=== PATIENT | female | born 1955 | race Caucasian/White ===

== ENCOUNTER 2020-05-02 06:14 | Inpatient (IN) ==
--- NOTE | 2020-04-17 10:55 | PAT Medication Instructions ---
Medication Instructions Date of Service April 17, 2020 Home Medications metronidazole 0.75 % topical gel 0.75 % TOPICAL Q2D amitriptyline 50 mg tablet 50 - 100 mg PO HS paroxetine HCl 20 mg tablet 20 mg PO QPM prednisone 5 mg tablet 5 mg PO QAM STOP taking 24 hours before surgery metronidazole 0.75 % topical gel 0.75 % TOPICAL Q2D Take morning of surgery With a small sip of water, OTHERWISE NOTHING TO EAT OR DRINK AFTER MIDNIGHT: prednisone 5 mg tablet 5 mg PO QAM Take evening before surgery amitriptyline 50 mg tablet 50 - 100 mg PO HS paroxetine HCl 20 mg tablet 20 mg PO QPM Other Notes If you have any questions please call us at [phone] or [phone] or [phone] or [phone]
--- NOTE | 2020-04-19 14:53 | Anesthesiology Consultation ---
Date of Service April 19, 2020 Assessment & Plan (1) Encounter for pre-operative examination: COVID Status: As of 04/19 PAT nurse assessment, patient denies travel to endemic area, known exposure/sick contacts, or symptoms of COVID19. Preoperative COVID19 testing to be completed prior to surgery. Patient aware to avoid travel for 2 weeks prior to surgery and maintain social distancing/masking guidelines. Aware to self-isolate strictly once she has had preoperative COVID testing completed. Patient has an unspecified demyelinating disorder. Discussed GA as possible alternative to SAB. Chart Review Chart Review: Acceptable Risk for Surgery (pending surgeon-ordered PCP clearance) and Patient seen in Pre Admission Testing Teaching & Discussion Instructed NPO after midnight before surgery, except medications with 15 cc of water. Medication instructions provided according to the [facility] guidelines. History Surgery Operation Date: 05/02/20 08:15 Proposed Procedures p Left Total Knee Arthroplasty - Bogdan Sarabia MD Height/Weight Height: 5 ft 3 in Weight: 75.2 kg Allergies Allergy/AdvReac Type Severity Reaction Status Date / Time No Known Drug Allergies Allergy Unknown Verified 04/15/20 08:28 Medications Home Medications Medication Instructions Recorded Confirmed Last Taken metronidazole 0.75 % topical gel 0.75 % TOPICAL Q2D gm 06/12/19 04/15/20 Unknown amitriptyline 50 mg tablet 50 - 100 mg PO HS tab 07/12/19 04/15/20 Unknown paroxetine HCl 20 mg tablet 20 mg PO QPM tab 07/12/19 04/15/20 Unknown prednisone 5 mg tablet 5 mg PO QAM tab 07/12/19 04/15/20 Unknown Past Medical History Medical History Allergic rhinitis (Chronic) Arthritis Chronic steroid use Demyelinating disease (Chronic) NUMBNESS LEFT LEG-NO DIAGNOSIS. MS RULED OUT, BUT UNSURE WHAT IT IS. GERD (gastroesophageal reflux disease) (Chronic) UNDER CONTROL PMR (polymyalgia rheumatica) (Chronic) DAILY STEROIDS SINCE 12/2018 Rosacea (Chronic) Exercise / Class Metabolic Activity II 4-5 Yardwork/Stairs/Walk up hill Past Family History Family History Mother Cardiac disorder Family/Other Grqdiwp-Hjgzf-Yzruj disease AUNT/GRANDMOTHER Father Hypertension Past Surgical History Surgical History H/O laparoscopic adjustable gastric banding 2009? History of colonoscopy History of esophagogastroduodenoscopy (EGD) Past Anesthesia History No Hx of Anesthesia Complications and No Family Hx of Anesthesia Complications History of PONV No Hx of PONV and No Hx of Motion Sickness Social History Smoking Status: Former smoker Do You Dip or Chew Tobacco: No Smoking End Date: QUIT 12 YRS AGO Hx Alcohol Use: Yes Alcohol type: wine alcohol intake frequency: a few times a week Hx Substance Use: No Review of Systems Pt denies any recent chest pain, shortness of breath, palpitations, cough, fever or URI. Physical Exam Vital Signs BP: 130/84 P: 102bpm SPO2: 96% RA T: 98.4 F R: 16 ENMT Mouth: + dental restorations (few crowns on molars); no chipped teeth and no loose teeth Thyromental Distance: > or= 3.5 Finger Breadths (3.5) Mallampati Class: II Neck normal visual inspection; neck extension not limited Respiratory normal respiratory effort Auscultation: lungs clear to auscultation bilaterally Cardiovascular Rate/Rhythm: regular rhythm and + tachycardic Heart Sounds: no murmur Extremities: no edema Testing Laboratory Results 04/19/20 15:02 04/19/20 15:02 PT 10.1 Seconds (9.0-12.0) 04/19/20 15:02 INR 1.0 (0.9-1.1) 04/19/20 15:02 APTT 29.0 Seconds (21.0-31.0) 04/19/20 15:02 Hemoglobin A1c 4.8 % (4.5-5.6) 04/19/20 15:02 Urine Color Dark Yellow 04/19/20 Unknown Urine Appearance Cloudy (Clear) A 04/19/20 Unknown Urine pH 5.0 (4.5-7.5) 04/19/20 Unknown Ur Specific [place] 1.028 (1.000-1.030) 04/19/20 Unknown Urine Protein Trace (Negative) H 04/19/20 Unknown Urine Glucose (UA) Negative (Negative) 04/19/20 Unknown Urine Ketones Trace (Negative) H 04/19/20 Unknown Urine Nitrite Negative (Negative) 04/19/20 Unknown Ur Leukocyte Esterase 1+ (Negative) H 04/19/20 Unknown Urine WBC (Auto) 10-30 /hpf (0-5) H 04/19/20 Unknown Urine RBC (Auto) 5-10 /hpf (0-4) H 04/19/20 Unknown U Hyaline Cast (Auto) 1-5 /lpf (0-5) 04/19/20 Unknown U Epithel Cells (Auto) >30 /lpf (0-5) H 04/19/20 Unknown Urine Bacteria (Auto) Negative (Negative) 04/19/20 Unknown Blood Type O Positive 04/19/20 15:02 Antibody Screen NEGATIVE 04/19/20 15:02 04/19/20 Unknown Urine Culture - Final Urine,Clean Catch Gamma strep not enterococcus Electrocardiogram Date: 04/19/20 Findings: + NSR @ (95bpm)
[2020-04-19 16:02] LABS: Basophils # (auto) 0.02 K/uL (0-0.2); Basophils % (auto) 0.2 %; Eosinophils # (auto) 0.06 K/uL (0-0.5); Eosinophils % (auto) 0.7 %; Hematocrit (blood only) 44.7 % (37-47); Hemoglobin 15.5 g/dL (12.0-16.0); Immature Granulocytes # (auto) 0.02 K/uL (0.00-0.02); Immature Granulocytes % (auto) 0.2 %; Lymphocytes # (auto) 0.87 K/uL (1.2-3.4); Lymphocytes % (auto) 9.6 %; Mean Corpuscular Hemoglobin 33.2 pg (25-34); Mean Corpuscular Hgb Conc 34.7 g/dL (32-36); Mean Corpuscular Volume 95.7 fL (80-100); Monocytes # (auto) 0.51 K/uL (0.11-0.59); Monocytes % (auto) 5.7 %; Neutrophils # (auto) 7.54 K/uL (1.4-6.5); Neutrophils % (auto) 83.6 %; Platelet Count 282 K/uL (130-400); RDW Coefficient of Variation 13.4 % (11.5-14.5); RDW Standard Deviation 46.4 fL (36.4-46.3); Red Blood Count 4.67 M/uL (4.2-5.4); White Blood Count 9.02 K/uL (4.8-10.8)
[2020-04-19 16:04] LABS: Appearance Urine Cloudy (Clear); Bacteria Urine Automated Negative (Negative); Blood Urine Negative (Negative); Color Urine Dark Yellow; Epithelial Cell Urine Auto >30 /lpf (0-5); Glucose Urine UA Negative (Negative); Ketones Urine Trace (Negative); Leukocyte Esterase Urine 1+ (Negative); Nitrite Urine Negative (Negative); Protein Urine Trace (Negative); Specific Gravity Urine 1.028 (1.000-1.030); Urobilinogen Urine Negative (Negative)
[2020-04-19 16:09] LABS: Albumin Level 3.6 gm/dl (3.4-5.0); Calcium 9.3 mg/dl (8.5-10.1); Creatinine Clr Calc Pharmacy 60.9 ml/min; Est GFR (African American) 76.3; Est GFR (Non-African American) 65.9; Potassium 4.3 mmol/L (3.5-5.1)
[2020-04-19 16:11] LABS: Prothrombin Time 10.1 Seconds (9.0-12.0)
[2020-04-19 16:12] LABS: Albumin Globulin Ratio 0.9 (0.9-2); Bilirubin,Total 0.4 mg/dl (0.2-1); Globulin 3.8 gm/dl (2.5-4.0); Total Protein 7.4 gm/dl (6.4-8.2)
[2020-04-19 16:21] LABS: Bilirubin Urine Negative (Negative); Ictotest Urine Negative (Negative)
--- NOTE | 2020-04-19 16:54 | History & Physical Report ---
Date of Service April 19, 2020 Assessment & Plan (1) Osteoarthritis of left knee: PRE-OP Diagnosis: Left knee osteoarthritis Planned Procedure: Left total knee arthroplasty Plan: Patient is scheduled to undergo this procedure at the [facility] as an inpatient on May 02, [address] Bogdan Sarabia. Risks and complications of the procedure such as: Infection, bleeding, scarring, pain, nerve and blood vessel damage, weakness, wound problems, stiffness, incomplete relief of symptoms, hardware failure, hardware loosening, wear, fracture, tendon or ligament injury, blood clots, embolism, heart attack, stroke and were explained to the patient at her visit today by Dr. Sarabia. Informed consent form the procedure was obtained. Patient also understood the risks of proceeding with surgical intervention during the COVID-19 pandemic. Currently she is asymptomatic and we will test her for code prior to the procedure. We will need to obtain preoperative medical clearance from the patient's primary care provider. Patient is unsure of the providers name because she is seen multiple providers of the [facility] family medicine provider service. Patient has her appointment with anesthesia after her appointment with us today. During that appointment she will obtain a CBC with differential, complete metabolic panel, PT/INR, blood type and screen, urinalysis, urine culture and sensitivity, EKG, hemoglobin A1c, and nasal culture for MRSA. Patient states that she has a walker at home she will bring with her on the day of surgery. Today's visit we discussed discharge planning, use of antibiotics following joint replacement surgery, how to prep the site the night before surgery, and lectures offered by [facility] in regards to joint replacement surgery via Zoom. Provided her with paperwork to obtain a handicap placard for her vehicle. Advised her that I will prescribe her medications upon discharge for postoperative pain control, and inflammation relief. I also advised her that she will be on aspirin twice daily for 30 days postoperatively for blood clot prevention. She is scheduled for 2-week postoperative follow-up with myself on May 15, 2020 at 11:15 AM. At that appointment we will discuss outpatient physical therapy services. Patient verbalized understanding of all information provided during today's visit, thanks for the care she is received, and states she has questions or concerns prior to her surgery date, she will contact clinic. History of Present Illness Chief Complaint: Left knee pain Primary Care Provider: NO PCP Chief Complaint: Left knee pain History of Present Illness (including history relevant to procedure): This 64-year-old female presents the clinic today for preoperative history and physical. Patient complains of a 5-year history of left knee pain that is becoming progressively worse and now affecting her activities of daily living. Patient is failed conservative management with steroid injections, Visco supplementation injections, physical therapy, use of nonsteroidal agents and activity modification. Patient states that she came here initially for a second opinion from another orthopedic group in [place]. Past Medical History: Problems: Osteoarthritis of left knee Preop examination Left leg numbness Knee pain Leg pain, left Depression Polymyalgia rheumatica Procedure History Procedure Procedure Date Comments LASIK - [address] GASTR ADJ DEVICE - 2009 Mammogram 09/13/2019 - there is no mammographic evidence of malignancy Allergies and Sensitivities: NKA Family history: Positive for hypertension and glaucoma Social history: Patient denies tobacco or illicit drug use. She consumes approximately 3 alcoholic beverages per week. Current Home Meds: (Last Updated 04/19 13:17) (PARoxetine 20 mg oral tablet) Take 1 tablet by mouth once daily(amitriptyline 50 mg oral tablet) 50 mg PO qhstopical (Voltaren 1% topical gel) 1 appl topical qid not to exceed 16 grams/day/single joint of lower extremities left hip area(predniSONE 5 mg oral tablet) 5 mg PO Daily Studies (relevant to the procedure): Results reviewed x-rays done today 4 views of the left knee demonstrate end- stage osteoarthritis with near complete medial joint space loss large osteophyte seen on the medial femoral condyle medial and lateral tibial plateau trochlea and posterior condyles. Findings are consistent with severe osteoarthritis. Allergies Allergy/AdvReac Type Severity Reaction Status Date / Time No Known Drug Allergies Allergy Unknown Verified 04/15/20 08:28 Home Medications Home Medications Medication Instructions Recorded Confirmed Type metronidazole 0.75 % topical gel 0.75 % TOPICAL Q2D gm 06/12/19 04/15/20 History amitriptyline 50 mg tablet 50 - 100 mg PO HS tab 07/12/19 04/15/20 History paroxetine HCl 20 mg tablet 20 mg PO QPM tab 07/12/19 04/15/20 History prednisone 5 mg tablet 5 mg PO QAM tab 07/12/19 04/15/20 History Past Med/Surg History Medical History Allergic rhinitis (Chronic) Arthritis Chronic steroid use Demyelinating disease (Chronic) NUMBNESS LEFT LEG-NO DIAGNOSIS. MS RULED OUT, BUT UNSURE WHAT IT IS. GERD (gastroesophageal reflux disease) (Chronic) UNDER CONTROL PMR (polymyalgia rheumatica) (Chronic) DAILY STEROIDS SINCE 12/2018 Rosacea (Chronic) Surgical History H/O laparoscopic adjustable gastric banding 2009? 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 Extraocular movements are intact Throat: Posterior oropharynx is clear with absence of edema, erythema or exudate Cardiac: Regular rate and rhythm with no murmurs or gallops appreciated Lungs: Clear to auscultation throughout with no wheezing, rales or rhonchi Abdomen: Nonobese, nondistended, nontender with normal active bowel sounds Extremities: left knee exam reveals the patient to have palpable pulses distally. Sensory intact light touch dorsal and plantar aspects of the foot. Tenderness to palpation along the medial joint line as well as along the medial and lateral aspects of the patella. Range of motion is from 3 to 110 degrees. Ligamentous exam is stable at 0 and 30 degrees. Neuro: Cranial nerves II through XII are intact with no motor or sensory deficit Skin: Normal in appearance with no open skin areas or discharge Results & Data Laboratory Results 04/19/20 04/19/20 04/19/20 Range/Units Unknown Unknown 15:02 WBC (4.8-10.8) K/uL RBC (4.2-5.4) M/uL Hgb (12.0-16.0) g/dL Hct (37-47) % MCV (80-100) fL MCH (25-34) pg MCHC (32-36) g/dL RDW Std Deviation (36.4-46.3) fL RDW Coeff of [place] (11.5-14.5) % Plt Count (130-400) K/uL MPV (7.4-10.4) fL Immature Gran % (Auto) % Neut % (Auto) % Lymph % (Auto) % [place] % (Auto) % Eos % (Auto) % Baso % (Auto) % Immature Gran # (Auto) (0.00-0.02) K/uL Neut # (Auto) (1.4-6.5) K/uL Lymph # (Auto) (1.2-3.4) K/uL [place] # (Auto) (0.11-0.59) K/uL Eos # (Auto) (0-0.5) K/uL Baso # (Auto) (0-0.2) K/uL PT (9.0-12.0) Seconds INR (0.9-1.1) APTT (21.0-31.0) Seconds PTT Ratio Sodium (136-145) mmol/L Potassium (3.5-5.1) mmol/L Chloride (98-107) mmol/L Carbon Dioxide (21-32) mmol/L Anion Gap (3-11) BUN (7-18) mg/dl Creatinine (0.6-1.2) mg/dl Est Cr Clr Drug Dosing ml/min Est GFR ( Amer) Est GFR (Non-Af Amer) BUN/Creatinine Ratio (10-20) Glucose (70-99) mg/dl Estimat Average Glucose Pending Hemoglobin A1c Pending Calcium (8.5-10.1) mg/dl Total Bilirubin (0.2-1) mg/dl AST (15-37) U/L ALT (12-78) U/L Alkaline Phosphatase (45-117) U/L Total Protein (6.4-8.2) gm/dl Albumin (3.4-5.0) gm/dl Globulin (2.5-4.0) gm/dl Albumin/Globulin Ratio (0.9-2) Urine Color Dark Yellow Urine Appearance Cloudy A (Clear) Urine pH 5.0 (4.5-7.5) Ur Specific [place] 1.028 (1.000-1.030) Urine Protein Trace H (Negative) Urine Glucose (UA) Negative (Negative) Urine Ketones Trace H (Negative) Urine Blood Negative (Negative) Urine Nitrite Negative (Negative) Urine Bilirubin Negative (Negative) Urine Urobilinogen Negative (Negative) Ur Leukocyte Esterase 1+ H (Negative) Urine WBC (Auto) 10-30 H (0-5) /hpf Urine RBC (Auto) 5-10 H (0-4) /hpf U Hyaline Cast (Auto) 1-5 (0-5) /lpf U Epithel Cells (Auto) >30 H (0-5) /lpf Urine Bacteria (Auto) Negative (Negative) Nasal Screen MRSA (PCR) Pending Blood Type Antibody Screen 04/19/20 04/19/20 04/19/20 Range/Units 15:02 15:02 15:02 WBC 9.02 (4.8-10.8) K/uL RBC 4.67 (4.2-5.4) M/uL Hgb 15.5 (12.0-16.0) g/dL Hct 44.7 (37-47) % MCV 95.7 (80-100) fL MCH 33.2 (25-34) pg MCHC 34.7 (32-36) g/dL RDW Std Deviation 46.4 H (36.4-46.3) fL RDW Coeff of [place]ora 13.4 (11.5-14.5) % Plt Count 282 (130-400) K/uL MPV 9.0 (7.4-10.4) fL Immature Gran % (Auto) 0.2 % Neut % (Auto) 83.6 % Lymph % (Auto) 9.6 % [place] % (Auto) 5.7 % Eos % (Auto) 0.7 % Baso % (Auto) 0.2 % Immature Gran # (Auto) 0.02 (0.00-0.02) K/uL Neut # (Auto) 7.54 H (1.4-6.5) K/uL Lymph # (Auto) 0.87 L (1.2-3.4) K/uL [place] # (Auto) 0.51 (0.11-0.59) K/uL Eos # (Auto) 0.06 (0-0.5) K/uL Baso # (Auto) 0.02 (0-0.2) K/uL PT 10.1 (9.0-12.0) Seconds INR 1.0 (0.9-1.1) APTT 29.0 (21.0-31.0) Seconds PTT Ratio 1.0 Sodium 141 (136-145) mmol/L Potassium 4.3 (3.5-5.1) mmol/L Chloride 107 (98-107) mmol/L Carbon Dioxide 27 (21-32) mmol/L Anion Gap 7.0 (3-11) BUN 12 (7-18) mg/dl Creatinine 0.93 (0.6-1.2) mg/dl Est Cr Clr Drug Dosing 60.9 ml/min Est GFR ( Amer) 76.3 Est GFR (Non-Af Amer) 65.9 BUN/Creatinine Ratio 13.0 (10-20) Glucose 92 (70-99) mg/dl Estimat Average Glucose Hemoglobin A1c Calcium 9.3 (8.5-10.1) mg/dl Total Bilirubin 0.4 (0.2-1) mg/dl AST 22 (15-37) U/L ALT 36 (12-78) U/L Alkaline Phosphatase 110 (45-117) U/L Total Protein 7.4 (6.4-8.2) gm/dl Albumin 3.6 (3.4-5.0) gm/dl Globulin 3.8 (2.5-4.0) gm/dl Albumin/Globulin Ratio 0.9 (0.9-2) Urine Color Urine Appearance (Clear) Urine pH (4.5-7.5) Ur Specific [place] (1.000-1.030) Urine Protein (Negative) Urine Glucose (UA) (Negative) Urine Ketones (Negative) Urine Blood (Negative) Urine Nitrite (Negative) Urine Bilirubin (Negative) Urine Urobilinogen (Negative) Ur Leukocyte Esterase (Negative) Urine WBC (Auto) (0-5) /hpf Urine RBC (Auto) (0-4) /hpf U Hyaline Cast (Auto) (0-5) /lpf U Epithel Cells (Auto) (0-5) /lpf Urine Bacteria (Auto) (Negative) Nasal Screen MRSA (PCR) Blood Type Antibody Screen 04/19/20 Range/Units 15:02 WBC (4.8-10.8) K/uL RBC (4.2-5.4) M/uL Hgb (12.0-16.0) g/dL Hct (37-47) % MCV (80-100) fL MCH (25-34) pg MCHC (32-36) g/dL RDW Std Deviation (36.4-46.3) fL RDW Coeff of [place] (11.5-14.5) % Plt Count (130-400) K/uL MPV (7.4-10.4) fL Immature Gran % (Auto) % Neut % (Auto) % Lymph % (Auto) % [place] % (Auto) % Eos % (Auto) % Baso % (Auto) % Immature Gran # (Auto) (0.00-0.02) K/uL Neut # (Auto) (1.4-6.5) K/uL Lymph # (Auto) (1.2-3.4) K/uL [place] # (Auto) (0.11-0.59) K/uL Eos # (Auto) (0-0.5) K/uL Baso # (Auto) (0-0.2) K/uL PT (9.0-12.0) Seconds INR (0.9-1.1) APTT (21.0-31.0) Seconds PTT Ratio Sodium (136-145) mmol/L Potassium (3.5-5.1) mmol/L Chloride (98-107) mmol/L Carbon Dioxide (21-32) mmol/L Anion Gap (3-11) BUN (7-18) mg/dl Creatinine (0.6-1.2) mg/dl Est Cr Clr Drug Dosing ml/min Est GFR ( Amer) Est GFR (Non-Af Amer) BUN/Creatinine Ratio (10-20) Glucose (70-99) mg/dl Estimat Average Glucose Hemoglobin A1c Calcium (8.5-10.1) mg/dl Total Bilirubin (0.2-1) mg/dl AST (15-37) U/L ALT (12-78) U/L Alkaline Phosphatase (45-117) U/L Total Protein (6.4-8.2) gm/dl Albumin (3.4-5.0) gm/dl Globulin (2.5-4.0) gm/dl Albumin/Globulin Ratio (0.9-2) Urine Color Urine Appearance (Clear) Urine pH (4.5-7.5) Ur Specific [place] (1.000-1.030) Urine Protein (Negative) Urine Glucose (UA) (Negative) Urine Ketones (Negative) Urine Blood (Negative) Urine Nitrite (Negative) Urine Bilirubin (Negative) Urine Urobilinogen (Negative) Ur Leukocyte Esterase (Negative) Urine WBC (Auto) (0-5) /hpf Urine RBC (Auto) (0-4) /hpf U Hyaline Cast (Auto) (0-5) /lpf U Epithel Cells (Auto) (0-5) /lpf Urine Bacteria (Auto) (Negative) Nasal Screen MRSA (PCR) Blood Type Pending Antibody Screen Pending
--- NOTE | 2020-04-19 19:23 | Electrocardiogram Report ---
Test Reason : Blood Pressure : / mmHG Vent. Rate : 095 BPM Atrial Rate : 095 BPM P-R Int : 152 ms QRS Dur : 088 ms QT Int : 360 ms P-R-T Axes : 069 063 023 degrees QTc Int : 452 ms Normal sinus rhythm Normal ECG No previous ECGs available Confirmed by Gilmer Vizcaino ([id number]) on 04/19/2020 7:23:19 PM Referred By: Bogdan Sarabia Confirmed By:Heriberto Vizcaino
[2020-04-20 06:46] LABS: Estimated Average Glucose 91 mg/dl; Hemoglobin A1C 4.8 % (4.5-5.6)
[~2020-05-02 06:14] MED LIST: ACETAMINOPHEN 500 MG TAB PO SCH; CEFAZOLIN 2000MG 2,000 MG/15 ML SYR IV SCH; CeleBREX 200 MG CAP PO SCH; FAMOTIDINE 20 MG TAB PO SCH; LR 500ML BOLUS, THEN 15ML/HR IV SCH; LR 60ML/HR IV SCH; METOCLOPRAMIDE HCL 10 MG TABLET PO SCH; ROPIVACAINE 0.5% HCL/PF 150 MG, BUPIVACAINE 0.5% MPF 30 ML, EPINEPHrine 0.15 MG, Ketoro... INFIL SCH; SCOPOLAMINE 1.5 MG TDSY TD SCH; TRAMADOL HCL 50 MG TABLET PO SCH; TRANEXAMIC ACID 1,000 MG **IV Intra-op IV SCH; TRANEXAMIC ACID 1,000 MG **IV Pre-op IV SCH; dexAMETHasone 4 MG TAB PO SCH
[2020-05-02] MEDS ORDERED: BUPIVACAINE/EPINEPHRINE 0.25% 1:200,000 30 ML VIAL ONE (06:30)
[2020-05-02] MEDS ORDERED: DEXAMETHASONE SOD INJ 4 MG/ML VIAL ONE ×2 (06:30→08:53)
[2020-05-02] MEDS ORDERED: BUPIVACAINE 0.5 % 5 MG/1 ML PF 10ML VIAL ONE (06:34)
[2020-05-02] MEDS ORDERED: MIDAZOLAM HCL 1 MG/ML 2ML VIAL ONE (07:45)
[2020-05-02] MEDS ORDERED: fentaNYL citrate 100 MCG/2 ML VIAL ONE (07:45)
[2020-05-02] MEDS ORDERED: ORTHO JOINT ANESTHETIC ONE (07:58)
--- NOTE | 2020-05-02 08:12 | History & Physical Bridge Note ---
Date of Service May 02, 2020 History & Physical Bridge Note I have examined the patient, reviewed the History & Physical and in the interval since the performance of the History & Physical I have noted the following changes of clinical significance: no changes noted
[2020-05-02] MEDS ORDERED: LIDOCAINE/EPINE 2% 1:100,000 20ML ONE (08:22)
[2020-05-02] MEDS ORDERED: PROMETHAZINE HCL 6.25 MG in SODIUM CHLORIDE 0.9% 50 ML IV PRN (08:50)
[2020-05-02] MEDS ORDERED: ONDANSETRON INJ 2 MG/ML 2 ML VIAL IV PRN ×2 (08:50→10:22)
[2020-05-02] MEDS ORDERED: ATROPINE SULFATE 0.1 MG/ML 10ML SYR IV PRN (08:50)
[2020-05-02] MEDS ORDERED: fentaNYL citrate 100 MCG/2 ML VIAL IV PRN (08:50)
[2020-05-02] MEDS ORDERED: ePHEDrine sulfate 50 MG/ML AMP IV PRN (08:50)
[2020-05-02] MEDS ORDERED: ONDANSETRON INJ 2 MG/ML 2 ML VIAL ONE (08:53)
[2020-05-02] MEDS ORDERED: PROPOFOL IV EMULSION 10 MG/ML 20 ML VIAL IV ONE (08:53)
--- NOTE | 2020-05-02 10:19 | Operative Report ---
Post Operative Report Pre & Post Diagnosis Operation Date: 05/02/20 08:15 Pre-Op Diagnosis: Left Knee Degenerative Joint Disease Post-Op Diagnosis: Left Knee Degenerative Joint Disease I identified the patient and participated in the time-out.: Yes Procedure Operation Date: 05/02/20 08:15 Actual Procedures p Left Total Knee Arthroplasty(Left) - Bogdan Sarabia MD Surgeon Bogdan Sarabia MD Professional Shopper DAMIEN Martinez PA-C. No resident/fellow was available to assist. Estimated Blood Loss 100 Findings Consistent with Post-Op Diagnosis Specimens Bone and soft tissue contents, Left knee Anesthesia Type Spinal MAC Complications none Disposition Accompanied Patient To Recovery: No Disposition: Recovery Room Indications 65-year-old female with long history of left knee pain refractory to conservative management. Medical history is notable for polymyalgia rheumatica on chronic steroids. X-rays demonstrate [id number] arthritis. I had a long discussion with her about the risks and benefits of surgery alternatives to surgery and expected outcomes. After reviewing all these she elected to proceed with surgery. All questions were answered. Informed consent was signed. Description of Procedure Patient was identified in the preoperative holding area where the surgical site was marked. Patient was brought back to the operating room, placed on the operating room table, and IV sedation was administered. All bony prominences were padded. Perioperative antibiotics and tranexamic acid were administered. Exam under anesthesia was performed. Patient had a 10 degree flexion contracture. She was stable to varus and valgus at 0 and 30 degrees. She flexed up to 125 degrees. The surgical site was prepped and draped in the normal sterile fashion. Prior to incision a multidisciplinary timeout was called. All in the room were in agreement. We began by exsanguinating the limb with an Esmarch bandage. Tourniquet was inflated to 250 mmHg. A 14 cm long incision was made over the anterior aspect of the knee. I dissected through the subcutaneous tissues to the level of the fascia. Full-thickness flaps are raised above the fascia. A median parapatellar arthrotomy was made. Half the fat pad was excised. A medial release was performed with Bovie electrocautery on the proximal tibia. Synovitis in the suprapatellar pouch was removed. The patella was then everted and held with 2 towel clips. The thickness of the patella was measured at 24 mm. Patellar resection was performed. Caliper showed the patella thickness now to be 15 mm. A size 38 trial was placed and had a great fit. The 3 drill holes were placed then the trial button was placed. The patellar thickness was now 25 mm which I was very happy with. The patellar trial was then removed, the patella was everted and the knee was flexed up. Osteophytes were removed from the femoral condyles and intercondylar notch. The ACL and PCL were excised. Intramedullary drill guide was drilled into the femur. Distal femoral cutting guide was placed set at 5 degrees of valgus to resect 11 mm off the distal femur. Distal femoral resection was made without difficulty. The tibia was then exposed. The lateral meniscus was sharply excised. The tibial cutting jig was set 2 clicks medial at the ankle to resect 10 mm off the less involved compartment. The jig was then pinned in position and the tibial cut was made. We then brought the knee into full extension. Lamina spreaders were placed. The medial meniscus was excised. The extension block was then placed for 10 mm thickness poly. This gave us full extension and excellent stability to varus and valgus. Next the knee was flexed up and the femoral sizing guide was placed. The patient sized to a size 3 femur. The 3 degree external rotation jig was used to create 2 holes in the distal femur. The jig was removed and the holes were compared to Whitesides axis and the epicondylar axis. We were happy with the rotation, and therefore placed a size three 4-in-1 cutting jig and pinned this into position. Our 4 cuts were made. The cutting jig was removed. The flexion block was then placed with the knee held at 90 degrees. There was excellent stability to varus and valgus at 90 degrees with no gapping medially or laterally. Next the box cutting jig was placed on the distal femur. The box cut was made and the femoral trial was impacted into position. The tibia was sized to a 2.5 for a rotating platform component. The tibial tray was positioned in external rotation on the cut tibial surface and the knee was brought through a full range of motion. We then pinned the tibial tray into position and used the intramedullary drill followed by the keel punch. The trial polyethylene was the n placed and the knee was brought through a full range of motion. I was very happy with the stability through a full range of motion. Next the trial components were removed. I then injected the posterior capsule and periosteum with the periarticular injection cocktail. The bone cuts were then irrigated and dried while the cement was mixed on the back table. The femoral component was cemented on first. Excess cement was removed. A lap sponge was placed over the femoral component for protection, then the tibia was subluxated anteriorly. The tibial component was then cemented in place. Again excess cement was removed. The trial polyethylene was then placed and the knee was brought into full extension and held there until the cement cured. The patella was cemented and clamped. Dilute Betadine solution was then allowed to irrigate the knee while the cement cured. Once the cement was fully cured, the tourniquet was let down and meticulous hemostasis was ensured. The wound was irrigated out with copious amounts normal saline. The knee was brought through a full range of motion and we are very happy with the patella tracking and the stability. Therefore, the trial tibial polyethylene was removed and the real size 3 polyethylene 10 mm thickness was placed. We then began to close. Interrupted 0 Vicryl suture was used to repair the patellar retinaculum in [id number] fashion. The quadriceps and patellar tendons were run with #1 Ethibond. The deep dermal layer was closed with running 2-0 Vicryl. [place]quitt were used for the skin. A compressive dressing was placed. Patient's sedation was lifted and was transferred to recovery room in stable condition. Summary of implants: Depuy Sigma Posterior Stabilized Cemented Femur, size 3 Tibial Tray cemented, size 2.5 Tibial polyethylene insert, 10 mm thickness, size 3 to match the femur Oval come patella, size 38 2 batches of simplex bone cement Postoperative course: Patient will be admitted to the floor for pain control and monitoring. Weightbearing as tolerated with no knee range of motion for 48 hours. Aspirin for DVT prophylaxis. I attest to the content of the Intraoperative Record and any orders documented therein. Any exceptions are noted below.
[2020-05-02] MEDS ORDERED: METOCLOPRAMIDE HCL INJ 5 MG/ML 2 ML VIAL IV PRN (10:22)
[2020-05-02] MEDS ORDERED: NALOXONE HCL 0.4 MG/1 ML VIAL/CARP IV PRN (10:22)
[2020-05-02] MEDS ORDERED: OXYCODONE HCL IR 5 MG TAB (IMMEDIATE RELEASE) PO PRN (10:22)
[2020-05-02] MEDS ORDERED: bisacodyL 10 MG SUPP PR PRN (10:22)
[2020-05-02] MEDS ORDERED: TRAMADOL HCL 50 MG TABLET PO PRN (10:22)
[2020-05-02] MEDS ORDERED: DiphenhydrAMINE HCL 50 MG/ML VIAL IV PRN (10:22)
[2020-05-02] MEDS ORDERED: ALUMINUM/MAGNESIUM SUSP 30 ML UDC PO PRN (10:22)
[2020-05-02] MEDS ORDERED: MAGNESIUM HYDROXIDE SUSP 30 ML UDC PO PRN (10:22)
--- NOTE | 2020-05-02 10:22 | Operative Report ---
Post Operative Report Pre & Post Diagnosis Operation Date: 05/02/20 08:15 Pre-Op Diagnosis: Left Knee Degenerative Joint Disease Post-Op Diagnosis: Left Knee Degenerative Joint Disease I identified the patient and participated in the time-out.: Yes Procedure Operation Date: 05/02/20 08:15 Actual Procedures p Left Total Knee Arthroplasty(Left) - Bogdan Sarabia MD Surgeon Bogdan Sarabia MD Bleacher Lard DAMIEN Martinez PA-C. No resident/fellow was available to assist. Estimated Blood Loss 100 Findings Consistent with Post-Op Diagnosis Specimens none Complications none Disposition Accompanied Patient To Recovery: Yes Disposition: Recovery Room Description of Procedure I was present during the entire case assisting with positioning, retraction, wound closure, dressing and immobilizer placement. No fellow was available for this case. Please see Dr. Sarabia procedure note for specifics of the case. I attest to the content of the Intraoperative Record and any orders documented therein. Any exceptions are noted below.
--- NOTE | 2020-05-02 10:59 | XRay Report ---
TWO VIEWS LEFT KNEE CLINICAL HISTORY: Postoperative examination. FINDINGS: AP and crosstable lateral portable views of the left knee are obtained. A left knee arthrop lasty is in near anatomic alignment. There has been undersurface remodeling of the patella. No acute fracture is seen. There are expected postoperative changes around the knee including skin clips, soft tissue edema, and subcutaneous gas. IMPRESSION: Expected postoperative changes status post left knee arthroplasty. No acute fracture is s een. ACT 112: Negative or not required by law. Electronically signed by: Barrera Marinelli M.D. 05/02/2020 10:58 AM
--- NOTE | 2020-05-02 11:01 | Anesthesia Procedure Note ---
Date of Service May 02, 2020 Anesthesia Post Epidural Note Vital Signs Vital Signs: Temp Pulse Resp BP Pulse Ox 36.5 C 838 H 18 101/63 99 05/02/20 10:20 05/02/20 11:00 05/02/20 11:00 05/02/20 11:00 05/02/20 11:00 Notes Mental Status: alert / awake / arousable Patient Amnestic to Procedure: Yes Nausea / Vomiting: adequately controlled Pain: adequately controlled Airway Patency, RR, SpO2: stable & adequate BP & HR: stable & adequate Hydration State: stable & adequate Neuraxial Anesthesia: was administered and sensory block is resolving Anesthetic Complications: no major complications apparent and Pt Satisfied with anesthetic care Epidural: Removed without complications and With tip intact
--- NOTE | 2020-05-02 11:05 | Anesthesiology Progress Note ---
Date of Service May 02, 2020 Anesthesia Post Procedure Vital Signs Vital Signs: Temp Pulse Resp BP Pulse Ox 05/02/20 11:00 838 H 18 101/63 99 05/02/20 10:50 83 22 90/62 L 99 05/02/20 10:40 82 13 91/59 L 100 05/02/20 10:30 81 17 91/57 L 100 05/02/20 10:20 36.5 C 84 13 78/52 L 97 05/02/20 06:37 36.7 C 20 150/102 H 99 Transfer of Care Handoff Completed per policy Notes Mental Status: alert / awake / arousable Patient Amnestic to Procedure: Yes Nausea / Vomiting: adequately controlled Pain: adequately controlled Airway Patency, RR, SpO2: stable & adequate BP & HR: stable & adequate Hydration State: stable & adequate Anesthetic Complications: no major complications apparent
[2020-05-02] MEDS: SODIUM CHLORIDE 0.9% 1000ML 1,000 ML IV SCH ×2 (11:41→21:49)
[2020-05-02] MEDS: ACETAMINOPHEN 500 MG TAB PO SCH ×2 (13:39→14:25)
[2020-05-02] MEDS: KETOROLAC TROMETHAMINE 15 MG/ML VIAL IV SCH ×2 (13:39→17:53)
[2020-05-02] MEDS: CEFAZOLIN 2000MG 2,000 MG/15 ML SYR IV SCH ×2 (14:20→21:20)
[2020-05-02] MEDS ORDERED: Nursing to Pharmacy Communication SCH (14:30)
[2020-05-02] MEDS: ACETAMINOPHEN SUSP 160 MG/5 ML BTL PO SCH ×2 (15:06→21:16)
[2020-05-02] MEDS: CHECK SCOPOLAMINE PATCH PLACEMENT SCH (16:09)
[2020-05-02] MEDS ORDERED: TRANEXAMIC ACID / 0.7% NACL 1,000 MG/100 ML BAG IV SCH (16:26)
[2020-05-02] MEDS ORDERED: PARoxetine HCL 20 MG TAB PO SCH (21:00)
[2020-05-02] MEDS ORDERED: AMITRIPTYLINE HCL 50 MG TAB PO SCH (21:00)
[2020-05-02] MEDS ORDERED: SENNA 8.6 MG TAB PO SCH (21:00)
[2020-05-02] MEDS: ASPIRIN 81 MG ECTAB PO SCH (21:03)
[2020-05-02] MEDS: CeleBREX 200 MG CAP PO SCH (21:03)
[2020-05-02] MEDS: DOCUSATE SODIUM 100 MG CAP PO SCH (21:03)
[2020-05-03] MEDS: KETOROLAC TROMETHAMINE 15 MG/ML VIAL IV SCH ×2 (00:12→05:34)
[2020-05-03] MEDS: CHECK SCOPOLAMINE PATCH PLACEMENT SCH ×2 (00:12→08:37)
[2020-05-03 06:06] LABS: Hematocrit (blood only) 32.1 % (37-47); Mean Corpuscular Hemoglobin 32.3 pg (25-34); Mean Corpuscular Hgb Conc 34.3 g/dL (32-36); Mean Corpuscular Volume 94.1 fL (80-100); Mean Platelet Volume 8.6 fL (7.4-10.4); Platelet Count 205 K/uL (130-400); RDW Coefficient of Variation 13.3 % (11.5-14.5); RDW Standard Deviation 45.1 fL (36.4-46.3); Red Blood Count 3.41 M/uL (4.2-5.4)
[2020-05-03] MEDS: ACETAMINOPHEN SUSP 160 MG/5 ML BTL PO SCH (06:24)
[2020-05-03 06:37] LABS: BUN Creatinine Ratio 11.1 (10-20); Calcium 8.7 mg/dl (8.5-10.1); Creatinine Clr Calc Pharmacy 74.1 ml/min; Est GFR (African American) 99.9; Est GFR (Non-African American) 86.2; Potassium 4.3 mmol/L (3.5-5.1)
[2020-05-03] MEDS ORDERED: dexAMETHasone 4 MG TAB PO SCH (08:00)
[2020-05-03] MEDS: DOCUSATE SODIUM 100 MG CAP PO SCH (08:37)
[2020-05-03] MEDS: ASPIRIN 81 MG ECTAB PO SCH (08:37)
[2020-05-03] MEDS: CeleBREX 200 MG CAP PO SCH (08:37)
[2020-05-03] MEDS ORDERED: metroNIDAZOLE 0.75% TOPICAL GEL 45 GM TUBE TOP SCH (09:00)
[2020-05-03] MEDS ORDERED: MULTIVITAMIN TAB PO SCH (09:00)
--- NOTE | 2020-05-03 10:02 | Orthopedic Progress Note ---
Date of Service May 03, 2020 Assessment & Plan (1) S/P total knee arthroplasty: PT/OT WBAT with walker assistance and immobilizer for first 48 hrs post op Silverlon applied (keep in place until f/u) Pain control with PO meds Ice with EZ wrap DVT prophy with Aspirin and TEDs Plan on discharge today with in home therapy Follow up at [facility] as scheduled With questions call Admission and Anticipated Discharge Date Admission Date: May 02, 2020 Subjective This 65 yo F is day 1 s/p Left Total Knee Arthroplasty. She is doing very well this AM and states that she is ready to go home. She has plans of doing in home therapy for the first 2 wks post op. Currently she denies CP, SOB, nausea, vomiting, fever, chills, sweats or lethargy. Pain is well controlled with PO meds. Review of Systems Review of Systems: All systems reviewed & are unremarkable except as noted in Subjective Physical Exam Physical Exam: Left Knee: post op dressing removed and Silverlon placed. Wound is not drainage and vladimir are intact. Mild edema and ecchymosis. No erythema, warmth or fluctuance. NV intact. No clunking with light varus/valgus stressing. Calf soft and supple. Patient able to actively SLR and flex knee to 75 degrees. Quad firing and strength 3/5. Able to actively dorsi/plantar flex foot. Results & Data ([facility]) Vital Signs (Past 12 Hours) Vital Signs Temp Pulse Resp BP Pulse Ox 05/03/20 08:19 36.6 C 88 18 135/85 99 05/03/20 04:00 36.6 C 86 18 116/76 99 05/02/20 23:25 36.9 C 98 H 18 130/80 95 Laboratory Results 05/03/20 05/03/20 Range/Units 05:48 05:48 WBC 10.30 (4.8-10.8) K/uL RBC 3.41 L (4.2-5.4) M/uL Hgb 11.0 L (12.0-16.0) g/dL Hct 32.1 L (37-47) % MCV 94.1 (80-100) fL MCH 32.3 (25-34) pg MCHC 34.3 (32-36) g/dL RDW Std Deviation 45.1 (36.4-46.3) fL RDW Coeff of Dinora 13.3 (11.5-14.5) % Plt Count 205 (130-400) K/uL MPV 8.6 (7.4-10.4) fL Sodium 141 (136-145) mmol/L Potassium 4.3 (3.5-5.1) mmol/L Chloride 110 H (98-107) mmol/L Carbon Dioxide 27 (21-32) mmol/L Anion Gap 4.0 (3-11) BUN 8 (7-18) mg/dl Creatinine 0.74 (0.6-1.2) mg/dl Est Cr Clr Drug Dosing 74.1 ml/min Est GFR ( Amer) 99.9 Est GFR (Non-Af Amer) 86.2 BUN/Creatinine Ratio 11.1 (10-20) Glucose 127 H (70-99) mg/dl Calcium 8.7 (8.5-10.1) mg/dl
--- NOTE | 2020-05-03 10:06 | Discharge Summary ---
Date of Service May 03, 2020 Admission HPI Per Admitting Provider Chief Complaint: Left knee pain History of Present Illness (including history relevant to procedure): This 64-year-old female presents the clinic today for preoperative history and physical. Patient complains of a 5-year history of left knee pain that is becoming progressively worse and now affecting her activities of daily living. Patient is failed conservative management with steroid injections, Visco supplementation injections, physical therapy, use of nonsteroidal agents and activity modification. Patient states that she came here initially for a second opinion from another orthopedic group in [place]. Past Medical History: Problems: Osteoarthritis of left knee Preop examination Left leg numbness Knee pain Leg pain, left Depression Polymyalgia rheumatica Procedure History Procedure Procedure Date Comments LASIK - [address] GA[address] ADJ DEVICE - 2009 Mammogram 09/13/2019 - there is no mammographic evidence of malignancy Allergies and Sensitivities: NKA Family history: Positive for hypertension and glaucoma Social history: Patient denies tobacco or illicit drug use. She consumes approximately 3 alcoholic beverages per week. Current Home Meds: (Last Updated 04/19 13:17) (PARoxetine 20 mg oral tablet) Take 1 tablet by mouth once daily(amitriptyline 50 mg oral tablet) 50 mg PO qhstopical (Voltaren 1% topical gel) 1 appl topical qid not to exceed 16 grams/day/single joint of lower extremities left hip area(predniSONE 5 mg oral tablet) 5 mg PO Daily Studies (relevant to the procedure): Results reviewed x-rays done today 4 views of the left knee demonstrate end- stage osteoarthritis with near complete medial joint space loss large osteophyte seen on the medial femoral condyle medial and lateral tibial plateau trochlea and posterior condyles. Findings are consistent with severe osteoarthritis. Admission Exam Per Admitting Provider Physical Exam: (relevant to the procedure, including heart and lung evaluation) General: Alert and oriented x3 with proper grooming and hygiene Eyes: Pupils are equal and reactive to light with accommodation. Extraocular movements are intact Throat: Posterior oropharynx is clear with absence of edema, erythema or exudate Cardiac: Regular rate and rhythm with no murmurs or gallops appreciated Lungs: Clear to auscultation throughout with no wheezing, rales or rhonchi Abdomen: Nonobese, nondistended, nontender with normal active bowel sounds Extremities: left knee exam reveals the patient to have palpable pulses distally. Sensory intact light touch dorsal and plantar aspects of the foot. Tenderness to palpation along the medial joint line as well as along the medial and lateral aspects of the patella. Range of motion is from 3 to 110 degrees. Ligamentous exam is stable at 0 and 30 degrees. Neuro: Cranial nerves II through XII are intact with no motor or sensory deficit Skin: Normal in appearance with no open skin areas or discharge Principal Diagnosis Left knee osteoarthritis Discharge Exam Left Knee: post op dressing removed and Silverlon placed. Wound is not drainage and vladimir are intact. Mild edema and ecchymosis. No erythema, warmth or fluctuance. NV intact. No clunking with light varus/valgus stressing. Calf soft and supple. Patient able to actively SLR and flex knee to 75 degrees. Quad firing and strength 3/5. Able to actively dorsi/plantar flex foot. Discharge Data Allergies Allergy/AdvReac Type Severity Reaction Status Date / Time No Known Drug Allergies Allergy Unknown Verified 05/02/20 06:33 Consultations 05/02/20 10:22 Consult Case Management - Discharge Planning Routine Procedures Performed Operation Date: 05/02/20 08:15 Actual Procedures p Left Total Knee Arthroplasty(Left) - Bogdan Sarabia MD Ordered Studies 05/02/20 05:00 US - OR guided needle placemen Routine Hospital Course (1) S/P total knee arthroplasty: Patient did very well overnight. She states that her knee feels much better than it did post op. She is very happy with her care. She is planning on in home therapy after discharge today. PT/OT WBAT with walker assistance and immobilizer for first 48 hrs post op Silverlon applied (keep in place until f/u) Pain control with PO meds Ice with EZ wrap DVT prophy with Aspirin and TEDs Plan on discharge today with in home therapy Follow up at [facility] as scheduled With questions call Total Time Total Time Spent Total Time Spent (In Minutes): 20 mins Total Time Includes: Examination of the Patient, Discharge Planning and Medication Reconciliation Discharge Plan Discharge Items Patient Disposition: Home - Home Health Services Reason For Visit: LEFT KNEE DEGENERATIVE JOINT DISEASE Discharge Diagnosis: Left Knee Degenerative Joint Disease Activity: As commented below Lifting: None Bathing: Keep incision dry Bathing Comment: May shower tomorrow Sexual Activity: Wait until after follow-up appointment Exercise/Sports: Wait until after follow-up appointment Driving/Machine Use: No driving until cleared by product specialist Weightbearing: Left weightbearing Weightbearing Comment: as tolerated with immobilizer and walker Non-emergency contact: Primary Care Provider Call non-emergency contact if: you have any medication questions, your pain is not controlled, your temperature is above 101.5, your wound has increased drainage and your wound pain has increased Follow-up/Referrals: Byron Newebrry MD [Primary Care Provider] - Diet: Regular Addtl Attending Provider Instructions: Post-operative Instructions Dear Patient and Family/Friends, Before you are discharged from the hospital, it is important to know what to expect when you get home after surgery. To that end, we have created this sheet of discharge instructions which covers many commonly asked questions. Make sure you go through this sheet in its entirety with your nurse before you are dis charged. Please note that we will go over the specifics of your surgery and recovery when you return for your first post-operative visit. Sincerely, Dr. Sarabia Medications 1. Oxycodone 5mg: take 1-2 tabs po q 4-6 hrs for pain. 30 tabs will be sent to your pharmacy. 2. Diclofenac Sodium 75 mg: take 1 tab twice daily for 30 days post operative. This will be sent to your pharmacy with 1 refill. 3. Aspirin 81 mg: take 1 tab twice daily for 30 days post operatively for blood clot prevention. Please purchase. 4. Extra Strength Tylenol 500mg: take 2 tabs every 6-8 hrs as needed for pain control post operatively. Please purchase. Pain Expect to be in a fair amount of pain after surgery. Remember, our goal is not to eliminate your pain, but to make it tolerable. It is a good idea to stay ahead of your pain by taking the medications you were prescribed once you get home. Typically, the pain starts improving 3-7 days after surgery. You should start weaning off the narcotic pain medication (oxycodone, hydrocodone, hydromorphone, morphine) as soon as your pain improves. Please call our office if your pain is not adequately controlled. Ice Ice your operative site at least 5 times a day for 15-30 minutes at a time. Make sure you have a thin cloth between the ice or cooling unit and your skin to pr event ramey bite. This is especially important if you received a nerve block. Continue icing your operative site for the first 5-7 days after surgery, then as needed. Diet/Nausea/Vomiting Start by drinking clear liquids and eating crackers. If you can tolerate this, then you may resume your normal diet. If you feel nauseated or vomit, take Zofran/ondansetron (if prescribed). Please call our office if you have intractable nausea or vomiting, or, if after hours, you may go to the Emergency Room for help. Constipation Constipation is a common side effect of narcotic pain medication. If you have not had a bowel movement within 2 days after surgery, we recommend purchasing an over the counter laxative such as Milk of Magnesia, Dulcolax, or Miralax from a local pharmacy, and taking it as instructed. Call our clinic if any questions. Slings and Braces If you were placed in a sling or brace, it must be worn at all times, including sleep. You may remove your sling or brace for physical therapy, home exercises, and showering. The length of time you will be in your brace and range of motion restrictions depends on what surgery you had; these details will be reviewed at your first post-operative appointment. Nerve block The anesthesia team sometimes places a nerve block to help with post-operative pain control. This results in significant numbness and inability to move the extremity. The nerve block usually wears off in 8-12 hours, but sometimes can last up to 24 hours. Please call our office if you are still unable to move your extremity after 24 hours, unless you received a pain pump to take home. Nerve blocks typically wear off quickly, so start taking pain medication as soon as you start feeling soreness near your surgical site. Weight bearing and Range of Motion. Do not bear any weight through your operative extremity immediately after surgery. If you had upper extremity surgery, do not lift anything with that arm. If you are in a knee brace, keep it locked in place until your follow-up. We will discuss your weight bearing, range of motion, and lifting restrictions in detail at your first post-operative appointment. Continuous Passive Motion (CPM) Machine If you were prescribed a CPM machine, it will start after your first post- operative appointment, at which time we will give you instructions on the range of motion settings and duration of treatment Physical therapy You will be given a prescription for physical therapy or occupational therapy at your first post-operative appointment. Typically, patients start therapy within 1 week of surgery Wound care and showering We will inspect your wound at your first post-operative visit, and may do a dressing change at that time. Most patients will be in a water-proof dressing that is removed 14 days after surgery. It is normal to see some dried blood on the dressing. Do not remove your dressing, paper strips or sutures yourself unless you are given permission. Showering is allowed the day after surgery. Do not scrub or remove any dressings. The wound should not be submerged underwater (i.e. in a bathtub or pool) until 4 weeks after surgery CHAGO stockings If you were given white stockings, these are to be worn at all times except to shower (on both legs) for the first 2 weeks after surgery. Driving You may not drive while taking narcotic pain medication or while in a cast, splint, sling or brace. You, the patient, need to make the final determination about when you are safe to drive, however, the earliest you may consider driving after surgery is below: Hand/Wrist/Elbow Surgery: 3 days Shoulder Surgery: 2 weeks Hip,/Knee/Ankle Surgery: 4 weeks Fracture repair: 6 weeks Return to Work Your return to work depends on what surgery was done and what type of work you do. Please bring any paperwork your employer needs completed to your first post-operative visit. Also, bring a description of your job duties, as this helps us to understand what risks you may face at work. Travel Avoid long distance travel (greater than 1 hour) in airplanes and cars for the first 6 weeks after surgery. If you must travel, you need to have a Doppler ultrasound done before you travel to rule out a blood clot in your legs. Follow-up You should have a follow-up appointment already scheduled 1-2 days after surgery. If not, please contact our office to make this appointment before you leave the hospital. When to call the office It is normal to have swelling and bruising in the limb that was operated on. This will improve with time. It is also normal to have fevers for the first 2 days after surgery. Reasons you should call your doctor include: Uncontrolled pain; Nausea, vomiting, or constipation that does not improve with medication; Fevers over 101.5, chills, sweats; Drainage or bleeding from the wound; Foul odor; Spreading areas of redness; Any other concerns Pending Studies at Discharge: No Stand-Alone Forms: [facility] Medications and DC Order Prescriptions: New oxycodone 5 mg tablet 5 mg PO Q6H Qty: 30 RF: 0 diclofenac sodium 75 mg tablet,delayed release (DR/EC) 75 mg PO BID 30 Days Qty: 60 RF: 1 Continued metronidazole 0.75 % gel 0.75 % topical Q2D RF: 0 amitriptyline 50 mg tablet 50 - 100 mg PO HS RF: 0 paroxetine HCl 20 mg tablet 20 mg PO QPM RF: 0 Discharge Orders: Discharge Order (Routine); Ordered 05/03/20 Ordered By: Brian Martinez Admission Data Admit Date/Time: 05/02/20 10:22 Attending Provider: Bogdan Sarabia Admit Provider: Bogdan Sarabia Primary Care Provider: Byron Newberry
== END 2020-05-03 11:47 | disposition home health service (06) | DRG 470 ==
LOC: ASU 06:14 → 3E 06:14 → OBSVTOIN 10:22